=== PATIENT | female | born 2000 | race Caucasian/White ===

== ENCOUNTER 2024-12-02 15:03 | Emergency (ER) | payer SELFPAY ==
[2024-12-02] MEDS ORDERED: Ipratropium/Albuterol 3 ML NEB ONE (15:23)
[2024-12-02] MEDS ORDERED: predniSONE 20 MG TAB ONE (15:23)
== END 2024-12-02 16:21 | disposition home or self-care (01) ==
LOC: BURERS 15:03
DX: R06.02 Shortness of breath (principal); F17.290 Nicotine dependence, other tobacco product, uncomplicated
CPT/HCPCS: J7512; J7620